=== PATIENT | female | born 1950 | race African-American/Black ===

== ENCOUNTER 2020-07-24 20:41 | Emergency (ER) | payer MEDICARE, MEDICAID ==
[~2020-07-24] VITALS: Ht 165.1 cm; Wt 69.0 kg
[2020-07-24] MEDS ORDERED: ACETAMINOPHEN 325MG TABLET PO ONE (23:15)
[2020-07-24] MEDS ORDERED: BACITRACIN ZINC OINT UDPKT TOP ONE (23:30)
[2020-07-24] MEDS ORDERED: LIDOCAINE 1%/EPI 1:100,000 10 ML VIAL IJ ONE (23:30)
[2020-07-24] MEDS ORDERED: TETANUS, DIPHTHERIA, PERTUSSIS VAC/PF 0.5ML (>7YR OLD) IM ONE (23:30)
[2020-07-25] MEDS ORDERED: LIDOCAINE HCL/EPINEPHRINE 1%-EPI 1:100,000 20 ML VIAL INFIL NR (00:45)
[2020-07-25 02:40] VITALS: BP 121/72
== END 2020-07-25 03:05 | disposition home or self-care (01) ==
LOC: ER 20:41
DX: S01.01XA Laceration without foreign body of scalp, initial encounter (principal); M25.532 Pain in left wrist; S81.012A Laceration without foreign body, left knee, initial encounter; Y07.03 Male partner, perpetrator of maltreatment and neglect; X99.8XXA Assault by other sharp object, initial encounter; Y93.89 Activity, other specified; Y92.039 Unspecified place in apartment as the place of occurrence of the external cause; Z23 Encounter for immunization
CPT/HCPCS: 12001; 70450; 73110; 73562; 90471; 90715; 93005; 99285; L1830; J3490